=== PATIENT | female | born 1965 | race Caucasian/White ===

== ENCOUNTER → 2020-05-11 13:59 | Outpatient (CLI) | payer OTHER, SELFPAY ==
[2020-05-11 16:51] LABS: COVID19 -Nasal RAPID Negative (Negative)
== END ==
PROVIDERS: PCP Physician Assistant Medical; Visit Provider Physician Assistant
DX: Z01.812 Encounter for preprocedural laboratory examination (principal); Z20.822 Contact with and (suspected) exposure to COVID-19
CPT/HCPCS: 87635

== ENCOUNTER 2020-05-12 12:14 | Day surgery (SDC) | payer OTHER, SELFPAY ==
[2020-05-11 15:35] VITALS: BMI 36.5
[2020-05-12] VITALS (9 sets, daily range): BP systolic 107–140; BP diastolic 72–92; PULSE 69–80; RESP 12–16; TEMP 36.3–36.7; O2SAT 95–98; BMI 36.5
[2020-05-12] MEDS: LACTATED RINGERS 1,000 ML 42 ML IV ×2 (12:36→16:21)
--- NOTE | 2020-05-12 15:04 | PM.PREOP ---
Pre-operative Note COVID-19 COVID-19 status: Negative Interval Note History & Physical reviewed/Exam performed by Physician: Yes Changes to H&P: No
--- NOTE | 2020-05-12 15:05 | PM.OP.1 ---
Operative Date/Time/Diagnoses Date of procedure: 05/12/20 Time of procedure: 15:31 Pre-op diagnosis: left knee medial meniscal tear Post-op diagnosis: same Procedure & Clinicians Procedure: Left knee arthroscopy with partial medial meniscectomy, aspiration of meniscal cyst Same procedure as scheduled: Yes Indications: this is a 54-year-old female with ongoing left knee medial joint line pain with an MRI proven medial meniscus tear and a fairly large parameniscal cyst. She is brought the operating room for arthroscopy with repair as needed. Surgeon: Joseline Galan Click Yes if Unassisted: Yes Anesthesia Type: General Operative Notes Closure Type: primary Specimen(s): none sent Estimated Blood Loss (mL): 20 Blood products transfused: none Procedure in detail: Patient is brought to the operating room. She underwent induction of a general anesthesia. Her left lower extremities prepped and draped in standard sterile fashion. She is given IV antibiotics and a high thigh tourniquet was applied but not elevated. A time-out was performed. A lateral portal was established in the superior area for outflow. A lateral parapatellar portal was in place for the scope. The scope was inserted. Her examination under anesthesia was stable. The patellofemoral joint showed areas some areas of grade 2 chondromalacia especially in the lateral facet of the patella, the medial compartment had a complex tear in the posterior horn of the medial meniscus that extended from the middle 3rd of the medial meniscus into the posterior horn. The notch had a normal ACL the lateral compartment had areas of grade 1-2 chondromalacia on the lateral femoral condyle and the tibial plateau. Portal was established on the medial aspect of the para patella tendon and mechanical shaver was used to debride the medial meniscus resecting a portion from the middle 3rd of the medial meniscus and into the posterior horn. There was some additional unstable meniscal tissue in the posterior horn of the medial meniscus which was carefully resected with a basket. Shaver was then reinserted in order to further smooth the residual meniscus. The knee was meticulously irrigated with normal saline. The patient had a parameniscal cyst noted preoperatively and a needle was inserted along the medial aspect of the tibia and approximately 3 cc of cystic fluid was aspirated. The portals were closed with interrupted nylon and Steri-Strips. The wound was dressed sterilely. Patient was transferred recovery room in satisfactory condition. Complications none. Complications: none Post-operative Condition: stable Disposition: Acute Care Plan for aftercare: weight-bearing as tolerated. Begin outpatient physical therapy to work on progressive quad strengthening, sutures out in a week.
[2020-05-12] MEDS: CLINDAMYCIN 900 MG/50 ML PIGGYBACK 50 MG IV (15:41)
--- NOTE | 2020-05-12 16:07 | SUR.OPER ---
Lithotomy on padded OR bed, head on pillow, arms secured on padded arm boards at <90 degrees abduction. Right leg secured in padded yellow fins stirrup, left leg in padded arthoscopy saddle and draped free, saftey belt at lower abdomen .
[2020-05-12] MEDS: BUPIVACAINE 0.5% W/ EPI (PF) 30 ML VIAL INJ (16:17)
[2020-05-12] MEDS: ACETAMINOPHEN 325 MG TABLET 975 MG PO (16:56)
--- NOTE | 2020-05-12 17:37 | SUR.PHASEII ---
1715 dc'd 22g IV with catheter intact, clean dry dressing applied, pt. wilma. well. pt. to be discharged.
== END 2020-05-12 17:29 | disposition home or self-care (01) ==
PROVIDERS: PCP Physician Assistant Medical; Referring Provider Orthopaedic Surgery; Visit Provider Orthopaedic Surgery
PROC: (CPT 29870; principal; 2020-05-12 14:15)
DX: S83.232A Complex tear of medial meniscus, current injury, left knee, initial encounter (principal); M23.92 Unspecified internal derangement of left knee; W01.0XXA Fall on same level from slipping, tripping and stumbling without subsequent striking against object, initial encounter; M23.032 Cystic meniscus, other medial meniscus, left knee; E11.9 Type 2 diabetes mellitus without complications; G47.33 Obstructive sleep apnea (adult) (pediatric); E66.9 Obesity, unspecified; Z79.84 Long term (current) use of oral hypoglycemic drugs
CPT/HCPCS: 29881

== ENCOUNTER → 2023-12-22 09:27 | Outpatient (CLI) | payer OTHER, SELFPAY ==
--- NOTE | 2023-12-22 09:29 | DI.CT.S_ITS ---
PROCEDURE: CT UE LT WO CON INDICATIONS: R/U NONUNION FRACTURE TECHNIQUE: Noncontrast 0.75 mm thick sections acquired from the acromioclavicular joint to the inferior scapula, with coronal and sagittal reformatting. COMPARISON: [facility] [place], [place], XR SHOULDER 2+ VIEWS LEFT, 12/13/2023, 13:57. FINDINGS: Image quality: Excellent. Bones: Mild degenerative changes of the acromioclavicular joint. Mild degenerative changes of the glenohumeral joint. No dislocation of the left glenohumeral joint. There is a chronic, mildly impacted fracture of the humeral neck, without any solid bridging callus formation. There is mild anterior displacement of the distal fracture fragment. Soft tissues: No significant glenohumeral effusion. Left lung is unremarkable. No left axillary lymphadenopathy. Mild atrophy of the supraspinatus. IMPRESSION: Chronic, nonunited fracture of the humeral neck, without any solid bridging callus formation. Dictated by: Gabriela Cabello M.D. on 12/22/2023 at 14:37 Approved by: Gabriela Cabello M.D. on 12/22/2023 at 14:43
== END ==
PROVIDERS: PCP Physician Assistant Medical; Referring Provider Orthopaedic Surgery; Visit Provider Orthopaedic Surgery
DX: S42.212K Unspecified displaced fracture of surgical neck of left humerus, subsequent encounter for fracture with nonunion (principal); X58.XXXD Exposure to other specified factors, subsequent encounter
CPT/HCPCS: 73200

== ENCOUNTER → 2024-03-08 11:29 | Outpatient (CLI) | payer OTHER, SELFPAY ==
[2024-03-08 12:26] LABS: Add Manual Diff / Slide Review NO; Basophils Absolute Auto 100 /uL (0-100); Basophils Percent Auto 1.2 % (0-2); Eosinophils Absolute Auto 200 /uL (0-450); Eosinophils Percent Auto 3.1 % (2-4); Hematocrit 44.2 % (36-46); Hemoglobin 14.9 g/dL (12.0-16.0); Lymphocytes Absolute Auto 1900 /uL (1100-4500); Lymphocytes Percent Auto 34.5 % (25-40); Mean Corpuscular HGB Conc 33.6 % (30-36); Mean Corpuscular Hemoglobin 29.4 PG (26-34); Mean Corpuscular Volume 87.4 fL (80-100); Monocytes Absolute Auto 400 /uL (0-900); Monocytes Percent Auto 7.7 % (3-14); Neutrophils Absolute Auto 2900 /uL (1500-7000); Neutrophils Percent Auto 53.5 % (50-75); Platelet Count 238 X10^3/uL (150-400); Red Blood Cell Count 5.06 X10^6/uL (4.0-5.2); Red Cell Distribution Width 13.6 % (11.6-14.8); White Blood Cell Count 5.4 X10^3/uL (4.5-11.0)
[2024-03-08 12:51] LABS: C-Reactive Protein Quant < 0.5 mg/dL (<1.0)
[2024-03-08 13:35] LABS: Erythrocyte Sedimentation Rate 7 MM/HR (0-20)
== END ==
PROVIDERS: PCP Physician Assistant Medical; Referring Provider Orthopaedic Surgery; Visit Provider Orthopaedic Surgery
DX: S42.292A Other displaced fracture of upper end of left humerus, initial encounter for closed fracture (principal)
CPT/HCPCS: 36415; 85025; 85651; 86140

== ENCOUNTER → 2024-09-13 14:11 | Outpatient (CLI) | payer OTHER, SELFPAY ==
--- NOTE | 2024-09-13 | DI.CT.S_ITS ---
PROCEDURE: CT HUMERUS LEFT WITHOUT CON INDICATIONS: LEFT HUMERUS FRACTURE POSSIBLE NON UNION TECHNIQUE: Noncontrast 2 mm axial sections acquired of the left humerus, with coronal and sagittal reformats. For radiation dose reduction, the following was used: automated exposure control, adjustment of mA and/or kV according to patient size. COMPARISON: [facility], CT, CT UE LT WO CON, 12/22/2023, 9:36. [facility] [place], CR, XR SHOULDER 2+ VIEWS LEFT, 08/28/2024, 11:30. FINDINGS: Image quality: Excellent. Bones: Postsurgical changes are seen from fixation of the previously seen proximal humeral fracture with a lateral plate and screw construct. A fractured screw is noted at the level of the surgical neck/proximal shaft with lucency surrounding the screw that suggest loosening. The remaining metal hardware appears intact. Fracture lucency is still visualized with corticated margins and no osseous bridging. Mild degenerative changes at the acromioclavicular and glenohumeral joints. Soft tissues: Mild subcutaneous scarring at the proximal left upper arm. No significant glenohumeral effusion. The articular cartilages, ligaments, tendons are not well evaluated with CT. No elbow effusion. The visualized musculature is normal in bulk. IMPRESSION: Postsurgical changes from proximal femoral fracture fixation. Fracture of 1 of the metal screws is noting with surrounding lucency suggesting loosening. Corticated margins are seen along the fracture line without osseous bridging. Approved by: Scooter Mello M.D. on 09/16/2024 at 12:32
== END ==
PROVIDERS: PCP Physician Assistant Medical; Referring Provider Orthopaedic Surgery; Visit Provider Orthopaedic Surgery
DX: T84.418A Breakdown (mechanical) of other internal orthopedic devices, implants and grafts, initial encounter (principal); S42.202D Unspecified fracture of upper end of left humerus, subsequent encounter for fracture with routine healing
CPT/HCPCS: 73200